=== PATIENT | female | born 2000 | race Caucasian/White ===

== ENCOUNTER 2022-10-20 20:41 | Emergency (ER) | payer MEDICAID, SELFPAY ==
[2022-10-20 21:13] VITALS: BP 149/89; PULSE 76; RESP 16; TEMP 36.8; O2SAT 99; BMI 36.0
--- NOTE | 2022-10-20 23:13 | ED.GENADULT ---
HPI - General Adult General Chief complaint: Skin/Abscess/Foreign Body Stated complaint: rash on both hands Time Seen by Provider: 10/20/22 23:09 Source: patient Mode of arrival: ambulatory Limitations: no limitations History of Present Illness HPI narrative: 22-year-old female coming in today concerned about a rash on her hands that occurred several hours ago when she was at work. Patient works at [employer] and she uses the hand insole tape stitcher uco water that they have at work. She states that she went to use it today and right after she sprayed her hands, they felt tingly and felt like they were burning. Soon afterwards, she noticed a rash develop on the dorsal surface of the hands. She was not able to wash off the spray as she was going home and was in her car when she noticed this happen. She eventually was able to wash her hands upon arriving home. She states that she was then playing a game at home and she noticed that her finger tips turn blue. This was momentary and they went back to normal, however the rash remains. She denies any systemic symptoms. The rash is not pruritic or otherwise painful. Related Data Home Medications Medication Instructions Recorded Confirmed No Known Home Medications 10/20/22 10/20/22 Allergies Allergy/AdvReac Type Severity Reaction Status Date / Time No Known Drug Allergies Allergy Verified 10/20/22 21:20 Review of Systems Status of ROS: Reports: 10 or more systems reviewed and unremarkable except as noted in History and below Exam Narrative: Exam Narrative: Well-nourished well-developed patient in no acute distress. Alert and oriented. Answers questions appropriately. Mood and affect are appropriate. Thoughts are goal oriented and rational. No tangential or magical thinking noted. Patient speaks in full sentences without needing to catch her breath. Appear toxic. HEENT: Normocephalic atraumatic. Pupils are equally round reactive to light. Extraocular muscles are intact. Conjunctivae are moist without any icterus noted. Skin: Well perfused. Skin on hands is warm, clean and dry. She does have a fine papular rash on the dorsal surface of the hand that extends a little bit into the base of the fingers. The skin is not broken. There was no areas of excoriation. Is not hot to touch. Rash is not palpable. Hands and fingers are not swollen. She has full range of motion of all joints. Const: Vital Signs, click to edit/add: Vital Signs - 24 hr 10/20/22 21:13 Temperature 98.3 F Pulse Rate [Pulse Oximeter] 76 Respiratory Rate 16 Blood Pressure [Ri ght Upper Arm] 149/89 H Pulse Oximetry 99 Oxygen Delivery Me thod Room Air Course Vital Signs Vital signs: Initial Vital Signs Temperature 98.3 F 10/20/22 21:13 Temperature Source Temporal Artery Scan 10/20/22 21:13 Pulse Rate 76 10/20/22 21:13 Respiratory Rate 16 10/20/22 21:13 Blood Pressure 149/89 H 10/20/22 21:13 Blood Pressure Mean 109 10/20/22 21:13 Blood Pressure Position Sitting 10/20/22 21:13 Pulse Oximetry 99 10/20/22 21:13 Oxygen Delivery Method 10/20/22 21:13 Vital Signs Temperature 98.3 F 10/20/22 21:13 Pulse Rate 76 10/20/22 21:13 Respiratory Rate 16 10/20/22 21:13 Blood Pressure 149/89 H 10/20/22 21:13 Pulse Oximetry 99 10/20/22 21:13 Oxygen Delivery Method 10/20/22 21:13 Temperature 98.3 F 10/20/22 21:13 Pulse Rate 76 10/20/22 21:13 Respiratory Rate 16 10/20/22 21:13 Blood Pressure 149/89 H 10/20/22 21:13 Pulse Oximetry 99 10/20/22 21:13 Oxygen Delivery Method 10/20/22 21:13 Medical Decision Making MDM Narrative Medical decision making narrative: Rash on hands, consistent with contact dermatitis. We discussed not using that hand insole tape stitcher uco spray work anymore. We discussed daily Benadryl for the next couple days. I do not think she needs a cream at this time. Follow-up with her primary care provider if she is not improving. Discharge Plan Discharge Clinical Impression: Rash, Contact dermatitis Patient Disposition: Home, Self-Care Condition: Stable Additional Instructions: Take Benadryl 25 mg nightly for the next 2-3 nights. This can make you sleepy. Avoid hand insole tape stitcher uco from work. Prescriptions: No Action No Known Home Medications Follow Up/Referrals: Mary Kay Ortega MD [Primary Care Provider] - Stand Alone [facility]: [facility] Info Instructions
== END 2022-10-20 23:46 | disposition home or self-care (01) ==
LOC: ED 23:45
PROVIDERS: Emergency Provider Family Medicine; PCP Pediatrics
DX: R21 Rash and other nonspecific skin eruption (principal); L25.1 Unspecified contact dermatitis due to drugs in contact with skin
CPT/HCPCS: 99283

== ENCOUNTER 2024-05-11 09:39 | Outpatient (CLI) | payer MEDICAID, SELFPAY | END 2024-05-11 09:40 | disposition home or self-care (01) | PROVIDERS: PCP Family Medicine; Visit Provider Family Medicine | DX: E78.1 Pure hyperglyceridemia (principal); R73.03 Prediabetes; E78.2 Mixed hyperlipidemia; E88.810 Metabolic syndrome | CPT/HCPCS: 80048; 80061 ==